=== PATIENT | female | born 1955 | race Caucasian/White ===

== ENCOUNTER → 2017-01-29 | Day surgery (SDC) | payer OTHER ==
[~2017-01-29] VITALS: Ht 157.5 cm; Wt 92.5 kg
[~2017-01-29] MED LIST: ADVIL200 MG PO; ASPIR-TRIN325 MG PO; CELEXA20 MG PO; DIOVAN HCT 3201 EACH PO; FISH OIL 1,0001 EAC1 PO; FLONASE 50 MCG/16 GM NOSE; GARLIC1000 MG PO; LIPITOR40 MG PO; PERCOCET 5-3251 EACH PO; PREMARIN VAG30 GM VAG; PROVENTIL OR V6.7 GM INH; SUDAFED 12 HOU120 MG PO; SUPER B COMPLE150 MG PO; SYMBICORT 16010.2 GM INH; ULTRAM50 MG PO; VITAMIN C1000 MG PO; VITAMIN D-32000 UNI1 PO; ZYRTEC10 MG PO; [UNRECOGNIZED DRUG - REMARK] PO
--- NOTE | ~2017-01-29 | OR ---
PATIENT'S NAME: REID LLOYD [facility] AGE: 61 Y [address] ROOM: [place] [id number] [place] [facility] [place]: 01/29/2017 OR/Procedure Report DISCHARGE DATE: FAMILY PHYSICIAN: Cullen Ward MD ATTENDING PHYSICIAN: LALY BEJARANO SURGEON: Laly Bejarano MD MAIL SUPERINTENDENT: Isaac Moncada PA-C. DATE OF PROCEDURE: 01/29/2017 PREOPERATIVE DIAGNOSES: 1. Right hallux rigidus. 2. Metatarsalgia. 3. Gastrocnemius equinus/shortened Achilles tendon. 4. Failed second, third and fourth previous hammertoe corrections. 5. Fifth primary hammertoe. 6. Symptomatic retained hardware, right first metatarsal from previous bunionectomy procedure. POSTOPERATIVE DIAGNOSES: 1. Right hallux rigidus. 2. Metatarsalgia. 3. Gastrocnemius equinus/shortened Achilles tendon. 4. Failed second, third and fourth previous hammertoe corrections. 5. Fifth primary hammertoe. 6. Symptomatic retained hardware, right first metatarsal from previous bunionectomy procedure. PROCEDURE: 1. Right gastrocnemius recession procedure. 2. First MTP joint fusion. 3. Revision second through fourth hammertoe corrections. 4. Fifth primary hammertoe correction. 5. Two through four Maximo metatarsal shortening osteotomies. 6. Removal of deep buried hardware from right first metatarsal from previous bunionectomy. 7. Use of intraoperative fluoroscopy, less than 1 hour. ANESTHESIA: Spinal with peripheral nerve blocks. ESTIMATED BLOOD LOSS: Minimal. TOURNIQUET: Right proximal thigh 250 mmHg for 2 hours. SPECIMENS: None. PATIENT'S NAME: REID LLOYD [facility] AGE: 61 Y [address] ROOM: [place] [address] [place] [facility] [place]: 01/29/2017 OR/Procedure Report DISCHARGE DATE: FAMILY PHYSICIAN: Cullen Ward MD ATTENDING PHYSICIAN: LALY BEJARANO COMPLICATIONS: None. DISPOSITION: Stable in PACU. COUNTS: All counts were correct. IMPLANTS: Synthes small fragment set 5-hole LCP plate and screws. Fixos screws x3 for Maximo metatarsal osteotomies and Smart toes for second through fifth hammertoe corrections x4. INDICATIONS: Ms. Lloyd is a pleasant 61-year-old female, who presents today for surgery on her right lower extremity. The risks, benefits, alternatives pursuing surgical intervention were discussed with the patient in detail. She elected to proceed with surgery as noted above. I marked the right lower extremity indicating the correct surgical site. Anesthesia was consulted for their perioperative evaluation. OPERATIVE REPORT IN DETAIL: The patient was taken from the holding area to the operating room. A time-out was performed. Anesthesia performed that portion of the case. A preoperative antibiotic was also administered. The patient was placed supine on the operating room table and all other bony prominences were padded. A sterile tourniquet was placed on the right proximal thigh. The right lower extremity was then prepped and draped in a sterile fashion. I turned my attention to the right lower extremity. An Esmarch was used to exsanguinate the limb and the tourniquet was inflated to 250 mmHg. I turned my attention on the medial aspect of the leg. Using a #15 blade knife, I made an incision at the medial aspect of the leg at the level of the gastrocnemius through skin and subcutaneous tissue. I incised the fascia and identified the gastrocnemius aponeurosis. Using a vaginal speculum to visualize the gastrocnemius aponeurosis, I performed my gastrocnemius recession. I placed a hyperdorsiflexion moment upon the foot to gain excursion of the gastrocnemius. After performing the gastrocnemius recession, I achieved at least 15 degrees of increased ankle dorsiflexion with the knee extended. The wound was then copiously irrigated with a normal sterile saline solution and closed in layers beginning with 2-0 Vicryl followed by 3-0 Vicryl and keturah for the skin. I turned my attention to the right foot. I used a previous incision over the dorsum of the first metatarsophalangeal joint. There was a fair amount of scar tissue. I exposed the first metatarsophalangeal joint. I removed the hardware that had been previously placed from a bunionectomy done in the past. I confirmed this by introducing intraoperative fluoroscopy that showed that PATIENT'S NAME: REID LLOYD [facility] AGE: 61 Y [address] ROOM: [place] [address] [place] [facility] [place]: 01/29/2017 OR/Procedure Report DISCHARGE DATE: FAMILY PHYSICIAN: Cullen Ward MD ATTENDING PHYSICIAN: LALY BEJARANO the hardware had been successfully removed from the first metatarsal. I subsequently turned my attention to the second, third, fourth and fifth toes. The second through fourth toes had previously undergone hammertoe correction, but had regenerated the deformity. I performed a hammertoe correction of the second through fifth toes. The longitudinal incision was carried through skin and subcutaneous tissue. I removed the dorsum of the capsule at the PIP joint. The joints had been previously fused. There appeared to be a solid fusion though there was deformity present. I used an oscillating saw to perform an osteotomy at the previous PIP joint. The extensor mechanism was also removed from the dorsum of the PIP joint. The hammertoes were prepared and were reamed, broached and then Smart toe intramedullary implants were placed from the second through fifth toes. I confirmed the reduction fluoroscopically. This indicated successful second through fifth hammertoe corrections. I then turned my attention to the proximal aspect of the forefoot. I extended my hammertoe correction incisions from the second through fourth toes proximally to the level of the second through fourth metatarsal heads. There was evidence of pre-existing metatarsalgia. Beginning with the second metatarsal, I identified the second metatarsal head. Using an oscillating saw, I performed a Maximo osteotomy. I removed a wedge of bone dorsally to prevent plantar overload of the second metatarsal head. The remaining second metatarsal head was reduced and a Fixos screws was placed to secure the second metatarsal in place. I confirmed the correction fluoroscopically. This was repeated for the third and fourth metatarsals. They were shortened without consequence. Intraoperative fluoroscopy indicated a well reduced second through fourth metatarsal Maximo osteotomies. I turned my attention back to the first metatarsophalangeal joint. Using a cup and cone reamers, I prepared the bony surfaces of the first metatarsal head and proximal phalanx. I provisionally pinned it in place. I placed a 2.7 mm LCP plate over the dorsum and confirmed its position fluoroscopically. I placed 2 screws proximally at the level of the first metatarsal. I then drilled a hole in the distal phalanx in the distal part of the screw to achieve compression across the metatarsophalangeal joint. I confirmed this fluoroscopically. I then drilled for a more distal screw in the distal phalanx that secured the plate distally. All of the wounds were then copiously irrigated with a normal sterile saline solution via pulsatile lavage. The wounds were closed in layers beginning with 3-0 Vicryl suture followed by 3-0 nylon suture in interrupted horizontal mattress fashion to approximate the skin. The tourniquet was let down, and there was good capillary refill in all of PATIENT'S NAME: REID LLOYD [facility] AGE: 61 Y [address] ROOM: [place], [place] [address] [place] [facility] [place]: 01/29/2017 OR/Procedure Report DISCHARGE DATE: FAMILY PHYSICIAN: Cullen Ward MD ATTENDING PHYSICIAN: LALY BEJARANO. The patient was then transferred from the operating room table on to the stretcher and brought to the recovery room in stable condition. There were no intraoperative complications noted. Of note, my PA, Isaac Moncada, played an integral role in the intraoperative care of this patient. This included preoperative positioning, intraoperative expert retraction, and closing and splinting functions. IMPRESSION: The patient is status post the noted procedures above. PLAN: The patient will be nonweightbearing on the right lower extremity in a splint. She will be encouraged to rest, ice and elevate it. Postoperative pain control in the form of Percocet and IV morphine as needed for pain in the PACU. DVT prophylaxis will be in the form of aspirin. She had been instructed to keep her splint clean, dry, and intact. She will be discharged to home from the PACU provided she meets PACU discharge criteria. She will follow up with me in the office in 2 weeks for first postoperative visit. MD JOAO QURESHI/cliftonl /[id number] d: 01/29/17 2306 t: 01/30/17 1150, OPERATIVE SUMMARY
== END ==
LOC: GPOC 01-24 11:00 → GSDC 08:59 → GPOC 11:00
PROC: 0L8N0ZZ Division of Right Lower Leg Tendon, Open Approach (ICD-10-PCS; principal; 2017-01-29)
PROC: 0SGM0ZZ (ICD-10-PCS; 2017-01-29)
PROC: 0QBQ0ZZ Excision of Right Toe Phalanx, Open Approach (ICD-10-PCS; 2017-01-29)
DX: M20.21 Hallux rigidus, right foot (principal); M77.40 Metatarsalgia, unspecified foot; M21.6X1 Other acquired deformities of right foot; J45.909 Unspecified asthma, uncomplicated; M20.40 Other hammer toe(s) (acquired), unspecified foot; M21.40 Flat foot [pes planus] (acquired), unspecified foot; M21.621 Bunionette of right foot
CPT/HCPCS: C1713; C1776; J0690; J2001; J7120